=== PATIENT | male | born 1970 | race Hispanic/Latino ===

== ENCOUNTER → 2017-07-02 | Outpatient (CLI) | payer MEDICARE, OTHER | LOC: M LRY 11:21 | DX: R93.7 Abnormal findings on diagnostic imaging of other parts of musculoskeletal system (principal); M25.511 Pain in right shoulder | CPT/HCPCS: 73030 ==

== ENCOUNTER → 2019-02-15 | Outpatient (CLI) | payer OTHER ==
[~2019-02-15] MED LIST: ACET1TAB15 PO; ACET65TA; ADVA1AER2; AMBI10TA; ASPI325T; CEFT2ADD; COLA50CA; EFFEXOR; FENO54TA2 PO; FLEX10TA2 PO; HEPARIN; IBUP200T2 PO; KEFL250C; NORMAL SALINE FLUSH; OXYC10TA97; VENL50TA2 PO; VICO5TAB
--- NOTE | 2019-02-15 10:28 | REP ---
Right knee series: Five views. History: Right knee pain times 4 days. Findings: Five views of the right knee demonstrate patellofemoral osteoarthritic spurring. There is no evidence of joint effusion or joint space narrowing. There is minimal medial femoral condylar spurring. No erosive changes seen. Impression: Mild patellofemoral and medial compartment osteoarthritis. No acute bony abnormality. Electronically Signed by Wyatt Lewis MD 02/15/2019 10:19 A
== END ==
LOC: M LRY 09:54
PROVIDERS: ATTEND Physician Assistant
DX: M17.11 Unilateral primary osteoarthritis, right knee (principal)

== ENCOUNTER → 2022-07-02 | Outpatient (REF) | payer OTHER | LOC: M LAB REF 18:38 | PROVIDERS: ATTEND Student in an Organized Health Care Education/Training Program | DX: J02.9 Acute pharyngitis, unspecified (principal) ==

== ENCOUNTER → 2023-11-18 | Outpatient (CLI) | payer OTHER | LOC: M RAD 12:24 | PROVIDERS: ATTEND Nurse Practitioner Family | DX: E04.0 Nontoxic diffuse goiter (principal) ==

== ENCOUNTER → 2023-12-29 | Outpatient (REF) | payer OTHER | LOC: M LAB REF 17:49 | PROVIDERS: ATTEND Internal Medicine Endocrinology, Diabetes & Metabolism | DX: E04.1 Nontoxic single thyroid nodule (principal) ==

== ENCOUNTER → 2025-04-04 | Outpatient (REF) | payer OTHER ==
[2025-04-04 18:27] LABS: FREE T4 1.49 NG/DL (0.89-1.76)
[2025-04-04 18:30] LABS: TOTAL T3 178.0 NG/DL (60.0-181.0)
== END ==
LOC: M LRY 17:18
PROVIDERS: ATTEND Nurse Practitioner Family
DX: E05.00 Thyrotoxicosis with diffuse goiter without thyrotoxic crisis or storm (principal)